=== PATIENT | female | born 1975 | race Caucasian/White ===

== ENCOUNTER 2018-02-20 13:27 | Emergency (ER) | payer OTHER, SELFPAY ==
[~2018-02-20] VITALS: Ht 152.4 cm; Wt 50.0 kg
[2018-02-20 13:31] VITALS: BP 126/78
[2018-02-20] MEDS ORDERED: OXYcodone/APAP 5/325MG TABLET ONE (13:59)
[2018-02-20] MEDS ORDERED: OXYcodone/APAP 5/325MG TABLET PO ONE (14:00)
[2018-02-20] MEDS ORDERED: LORazepam 1MG TABLET ONE (14:29)
[2018-02-20] MEDS ORDERED: LORazepam 1MG TABLET PO ONE (14:30)
[2018-02-20] MEDS ORDERED: KETOROLAC 30 MG/1 ML ONE (14:47)
[2018-02-20] MEDS ORDERED: KETOROLAC 30 MG/1 ML IM ONE (15:00)
== END 2018-02-20 15:17 | disposition home or self-care (01) ==
LOC: ED 15:11
DX: S83.412A Sprain of medial collateral ligament of left knee, initial encounter (principal); F17.200 Nicotine dependence, unspecified, uncomplicated; W19.XXXA Unspecified fall, initial encounter; Y93.89 Activity, other specified; Y92.009 Unspecified place in unspecified non-institutional (private) residence as the place of occurrence of the external cause; Y99.8 Other external cause status
CPT/HCPCS: 29505; 73502; 73564; 73590; 96372; 99284; J1885